=== PATIENT | female | born 1975 | race Asian ===

== ENCOUNTER 2018-01-12 14:02 | Emergency (ER) | payer OTHER, SELFPAY ==
[2018-01-12 14:03] VITALS: BP 147/93; PULSE 68; RESP 16; TEMP 37.1; O2SAT 100; BMI 20.6
--- NOTE | 2018-01-12 14:25 | RAD_ITS ---
STUDY: X-RAY - LEFT RADIUS AND ULNA REASON FOR EXAM: Female, 42 years old. Trauma TECHNIQUE: 2 view(s) of the forearm. COMPARISON: None. FINDINGS: There is no evidence of fracture or dislocation. There are no significant degenerative changes. There are no radiodense foreign bodies. RAD/Forearm 2 Views IMPRESSION: No fracture or dislocation. Electronically Signed: Diego Aiken, at 15:28 EDT Tel , Service support ,
--- NOTE | 2018-01-12 14:53 | ED.RN ---
CALLED [facility] TO HAVE THEM COME TEST PATIENT.
--- NOTE | 2018-01-12 15:06 | ED.DCSUM_ITS ---
- ER Visit Summary Date of Service: 01/12/18 Chief Complaint: Injury to left forearm History of Present Illness: The patient is a 42 F who is right-hand dominant presents with injury to left forearm. This occurred at work. She had a twisting mechanism injury with blunt trauma. She reports pain over the mid to distal third left forearm. She denies paresthesia, anesthesia motors. She does report pain with movement. Physical Examination: Vital signs noted and unremarkable. There is evidence of contusion junction of the mid and distal third of the forearm over the ulna. Median, radial, and ulnar function intact. Capillary refill normal. Sensation normal. Test Results: Two-view x-ray of the forearm was obtained with no evidence of fracture or any acute process per my interpretation. Emergency Department Course and Treatment: X-ray to evaluate for fracture. Treatment Plan: Rest, ice, elevation and anti-inflammatories since no contraindication Disposition: Discharged to home with follow-up with [facility] Impression: Strain left forearm and contusion initial encounter work-related This note was generated with [employer] dictation software. It may contain incorrect words, spelling, and punctuation that were not noted in review of the chart prior to signing ED Disposition - Plan for ED Patient: Disposition: Home or Assisted Living Chief Complaint: Upper Extremity Injury Instructions: ED Contusion Upper Ext Referrals: Joan Rodgers [Primary Care Provider] - [facility] [GROUP OF PHYSICIANS] - As Needed
[2018-01-12 15:26] VITALS: PULSE 87; RESP 14; O2SAT 98
== END 2018-01-12 15:26 | disposition home or self-care (01) ==
PROVIDERS: Emergency Provider Emergency Medicine; Family Provider Family Medicine; PCP Family Medicine
DX: S56.912A Strain of unspecified muscles, fascia and tendons at forearm level, left arm, initial encounter (principal); S50.12XA Contusion of left forearm, initial encounter; X50.1XXA Overexertion from prolonged static or awkward postures, initial encounter; Y93.9 Activity, unspecified; Y92.89 Other specified places as the place of occurrence of the external cause; Y99.0 Civilian activity done for income or pay
CPT/HCPCS: 73090; 99282